=== PATIENT | male | born 1975 ===

== ENCOUNTER 2016-12-18 15:52 | Emergency (ER) | payer SELFPAY ==
[2016-12-18 16:41] VITALS: BP 146/90
--- NOTE | 2016-12-18 17:01 | UC ---
General HPI - HPI Summary HPI Summary: REMOVED TICK FROM ABDOMEN THIS MORNING AT 4:30 AM. YESTERDAY WAS BUILDING STONE WALL NEAR WET WOODED AREA. NO OTHER TICKS VISUALIZED. NO FEVER. NO REDNESS. NO JOINT PAIN. - History of Current Complaint Chief Complaint: Kristi Stated Complaint: TICK Time Seen by Provider: 12/18/16 16:45 Hx Obtained From: Patient Onset/Duration: Sudden Onset, Lasting Hours, Resolved Onset Severity: Mild Current Severity: Mild Pain Intensity: 0 Associated Signs & Symptoms: Negative: Abdominal Pain, Fever, Immunocompromised , Nausea, SOB, Vomiting, Weakness - Allergy/Home Medications Allergies/Adverse Reactions: Allergies Allergy/AdvReac Type Severity Reaction Status Date / Time No Known Allergies Allergy Verified 12/18/16 16:41 PMH/Surg Hx/FS Hx/Imm Hx Previously Healthy: Yes - Surgical History Surgical History: None - Family History Known Family History: Positive: Diabetes, Respiratory Disease - Social History Occupation: Employed Full-time Lives: With Family Alcohol Use: None Substance Use Type: None Smoking Status (MU): Heavy Every Day Tobacco Smoker Cessation Counseling: Patient Advised to Stop Review of Systems Constitutional: Negative Skin: Other - PATIENT SELF-REMOVED TICK FROM ABDOMEN Eyes: Negative ENT: Negative Respiratory: Negative Cardiovascular: Negative Gastrointestinal: Negative Genitourinary: Negative Motor: Negative Neurovascular: Negative Musculoskeletal: Negative Neurological: Negative Psychological: Negative All Other Systems Reviewed And Are Negative: Yes Physical Exam Triage Information Reviewed: Yes Appearance: Well-Appearing, No Pain Distress, Well-Nourished Vital Signs: Initial Vital Signs Temp 99.0 F 12/18/16 16:37 Pulse 69 12/18/16 16:37 Resp 16 12/18/16 16:37 BP 146/90 12/18/16 16:37 Pulse Ox 96 12/18/16 16:37 Vital Signs Reviewed: Yes Eye Exam: Normal ENT Exam: Normal ENT: Positive: Normal ENT inspection Dental Exam: Normal Neck exam: Normal Neck: Positive: Supple, Nontender, No Lymphadenopathy Respiratory Exam: Normal Respiratory: Positive: Chest non-tender, Lungs clear, Normal breath sounds, No respiratory distress, No accessory muscle use Cardiovascular Exam: Normal Cardiovascular: Positive: RRR, No Murmur, Pulses Normal Abdominal Exam: Normal Abdomen Description: Positive: Nontender, No Organomegaly, Soft Musculoskeletal Exam: Normal Musculoskeletal: Positive: Strength Intact, ROM Intact Neurological Exam: Normal Psychological Exam: Normal Psychological: Positive: Normal Response To Family Skin Exam: Normal Course/Dx - Differential Dx - Multi-Symptom Differential Diagnoses: Metabolic Abnormality Provider Diagnoses: TICK BITE PROPHYLAXIS Discharge - Discharge Plan Condition: Stable Disposition: HOME Prescriptions: DOXYcycline CAP(*) [DOXYcycline 100MG CAP(*)] 100 mg PO ONCE #2 cap Patient Education Materials: Tick Bite (ED) Referrals: [facility]IAN REFERRAL [Outside] No Primary Care Phys,NOPCP [Primary Care Provider] - Images Front/Back of Body, Lg (Gallia): 1 - PATIENT SELF REMOVED TICK FROM RIGHT ABDOMEN
== END 2016-12-18 16:55 | disposition home or self-care (01) ==
LOC: UCCORT 15:52
DX: S30.861A Insect bite (nonvenomous) of abdominal wall, initial encounter (principal); W57.XXXA Bitten or stung by nonvenomous insect and other nonvenomous arthropods, initial encounter; Y93.9 Activity, unspecified; Y92.9 Unspecified place or not applicable; F17.210 Nicotine dependence, cigarettes, uncomplicated
CPT/HCPCS: 99202; G0463